=== PATIENT | female | born 1930 | race African-American/Black ===

== ENCOUNTER 2020-08-31 00:07 | Inpatient (IN) | payer OTHER ==
[2020-08-31] VITALS (7 sets, daily range): BP systolic 132–159; BP diastolic 63–91
[~2020-08-31] VITALS: Ht 165.1 cm; Wt 94.6 kg
--- NOTE | ~2020-08-31 | EMS ---
[place] [id number] [place] Patient Care Report Name: REAL LOCK Room #: 202-P ADM IN M.R.#: [id number] Admission: 08/31/20 Attend Phys: Panfilo Tao MD Discharge: Date of : [birth year] Report #: [id number] THIS REPORT FOR: //name// Report Transmitted: 09/01/2020 13:50 EMS Care Summary [place], [place]/[facility] Incident [id number] @ 08/30/2020 23:30 Incident Location [address] [place] [address] Patient REAL LOCK Female, 89 Years 1931-01-04 Patient Address [address] [place] [address] Patient History Hypertension (HTN),Type 2 Diabetes, Patient Allergies Penicillin allergy, Patient Medications Isosorbide, Chief Complaint CONSTIPATION Disposition Transported No Lights/[place] Dispatch Reason Breathing Problem Transported To [facility] Narrative M36 ARRIVED ON SCENE TO FIND AN 89 YEAR OLD FEMALE LAYING IN BED. PATIENT STATED THEY FELT FULL IN THEIR ABDOMEN AND CONSTIPATED. PATIENT STATED TO CREW MEMBERS SHE HAS NOT HAD A GOOD BOWEL MOVEMENT IN A COUPLE DAYS. PATIENT WAS NON AMBULATORY AND HAD SWEELING IN BILATERAL FEET WHICH SHE ST[place] [address] EMS Patient Care Report Name: REAL LOCK Room #: 202-P ADM IN M.R.#: [id number] Admission: 08/31/20 Attend Phys: Panfilo Tao MD Discharge: Date of : [birth year] Report #: [id number] HER. PATIENT WAS MOVED WITH A [place] LIFT ONTO THE STRETCHER ONCE ON STRETCHER PATIENT WAS SECURED WITH SAFETY BELTS. CREW MEMBERS AND FIRE PERSONNEL THEN WHEELED PATIENT TO THE BACK OF THE AMBULANCE. ONCE AT THE BACK OF THE AMBULANCE PATIENT WAS LIFTED INTO AMBULANCE. CREW MEMBERS THEN BEGAN TRANSPORT TO [facility]. EN ROUTE TO FACILITY A FULL SET OF VITALS WERE TAKEN WHICH WERE STABLE AND WITHIN NORMAL RANGES. PATIENT STATED SHE HAD NO PAIN JUST THAT HER STOMACH FELT FULL. EARLIER IN THE WEEK PATIENT WAS TAKEN TO HOSPITAL AND BROUGHT HOME WITH OXYGEN PER FAMILY BUT OXYGEN SATURATION WERE WITHIN NORMAL RANGES. ONCE AT HOSPITAL PATIENT WAS TAKEN OUT OF THE AMBULANCE WITH STRETCHER BY CREW MEMBERS AND WHEELED INTO HOSPITAL EMERGENCY ROOM. ONCE IN THE EMERGENCY ROOM PATIENT WAS WHEELED TO HOSPITAL ROOM AND MOVED TO HOSPITAL BED WITH A THREE PERSON SHEET LIFT. A FULL REPORT WAS GIVEN TO RECEIVING MEDICAL STAFF AND M36 WENT BACK INTO SERVICE. Initial Vitals @23:51P: 94,R: 16,BP: 148/63,Pain: 0/10,GCS: 15,CO: 5,SpO2: 96,Revised Trauma: 12, @23:47P: 93,R: 16,BP: 161/90,Pain: 0/10,GCS: 15,CO: 8,SpO2: 94,Revised Trauma: 12, Assessments @23:59MENTAL:Person Oriented,Time Oriented,Event Oriented,Place Oriented,SKIN:HEENT:Head/Face: No Abnormalities,LUNG SOUNDS:General: No Abnormalities,ABDOMEN:General: No Abnormalities,PELVIS//GI:No Abnormalities,EXTREMITIES:Left Leg: Edema,Left Leg: Weakness,Left Arm: Weakness,Right Arm: Weakness,Right Leg: Edema,Right Leg: Weakness,PULSE:Radial: 2+ Normal,NEURO:No Abnormalities, Impression Constipation Procedures @23:57ALS AssessmentResponse: UnchangedSucceeded@23:57BLS AssessmentResponse: Unchanged@23:58StretcherResponse: Unchanged Timeline 23:26,Call Received 23:26,Dispatch Notified 23:30,Dispatched 23:30,En Route 23:37,On Scene 23:39,At Patient 23:47,BP: 161/90 M,PULSE: 93,RR: 16 R,SPO2: 94 Ox,ETCO2: ,BG: ,PAIN: 0,GCS: 15, 23:51,Depart Scene 23:51,BP: 148/63 M,PULSE: 94,RR: 16 R,SPO2: 96 Ox,ETCO2: ,BG: ,PAIN: 0,GCS: 15, 23:57,ALS Assessment,Response: UnchangedSucceeded, [facility] [address] [place] [address] EMS Patient Care Report Name: REAL LOCK Room #: 202-P ADM IN M.R.#: [id number] Admission: 08/31/20 Attend Phys: Panfilo Tao MD Discharge: Date of : [birth year] Report #: [id number] 23:57,BLS Assessment,Response: Unchanged 23:58,Stretcher,Response: Unchanged 00:02,At Destination 00:14,Call Closed Disclaimer v1.1 Copyright 2020 [employer] This EMS Care Summary contains data elements from the applicable legal record (which may be displayed differently). It is designed to provide pertinent information for the following purposes: continuity of care, clinical quality, and state data reporting. The complete legal record is available to ED staff and administrators of the receiving hospital in [email or web address]'s Patient Tracker. All data is provided "as is."
[2020-08-31 01:14] LABS: ABSOLUTE NEUTROPHILS 5.4 thou/uL (1.4-8.2); BASOPHILS 0.6 % (0.0-2.0); EOSINOPHILS 1.8 % (0.0-3.0); HEMATOCRIT 25.9 % (37.0-47.0); HEMOGLOBIN 8.5 gm/dL (12.0-15.0); LYMPHOCYTES 17.2 % (24.0-44.0); MCH 29.7 pg (26.0-34.0); MCHC 32.9 g/dL (28.0-37.0); MCV 90.3 fL (80.0-100.0); PLATELET COUNT 310 thou/uL (150-400); POLYS 73.4 % (36.0-66.0); RBC 2.87 mil/uL (4.20-5.00); RDW 17.2 % (10.5-14.5); WBC 7.3 thou/uL (4.0-11.0)
[2020-08-31 01:40] LABS: ALBUMIN 2.9 g/dL (3.4-5.0); BUN 35 mg/dL (7-18); CALCIUM 9.2 mg/dL (8.5-10.1); CO2 27 mmol/L (21-32); CREATININE 1.8 mg/dL (0.6-1.0); GLUCOSE 138 mg/dL (74-106); SGOT < 5 U/L (15-37); SGPT 136 U/L (14-59); TOTAL BILIRUBIN 0.5 mg/dL (0.2-1.0); TOTAL PROTEIN 7.4 g/dL (6.4-8.2)
[2020-08-31 01:45] LABS: ANION GAP 7 mmol/L (7-16); CHLORIDE 100 mmol/L (98-107); POTASSIUM 5.4 mmol/L (3.5-5.1); SODIUM 134 mmol/L (136-145)
[2020-08-31 10:00] LABS: % SATURATION 23 % (20-39); IRON 41 ug/dL (50-170); TIBC 176 ug/dL (250-450)
--- NOTE | 2020-08-31 20:45 | NUR ---
PT IS AN ADMIT FROM EMERGENCY ROOM. CONSTIPATION , SHORTNESS OF BREATH, HISTORY DM, STENTS, CHF. WILL CALL [facility] IN AM FOR CONSULT ROUTINE. FAMILY WITH PT UPON ARIVAL TO UNIT. PLAN OF CARE AND ADMISSION DONE UPON ARRIVAL TO UNIT. LUNGS ARE DIMINISHED. ON 2 LITERS O2 NASAL CANULA. DENEIS ANY PAIN. CALL LIGHT WITHIN REACH IF NEEDS ASSISTANCE PEPR NURSING.
[2020-09-01 00:10] VITALS: BP 134/70
[2020-09-01 03:57] LABS: HEMATOCRIT 22.2 % (37.0-47.0); HEMOGLOBIN 7.4 gm/dL (12.0-15.0); MCH 30.1 pg (26.0-34.0); MCHC 33.2 g/dL (28.0-37.0); MCV 90.7 fL (80.0-100.0); RBC 2.44 mil/uL (4.20-5.00); RDW 16.6 % (10.5-14.5); WBC 6.2 thou/uL (4.0-11.0)
[2020-09-01 04:08] LABS: CALCIUM 8.9 mg/dL (8.5-10.1); CREATININE 1.7 mg/dL (0.6-1.0); POTASSIUM 4.3 mmol/L (3.5-5.1)
--- NOTE | 2020-09-01 04:15 | NUR ---
PT IS RESTED WITH TV ON THIS EVENING . VITALS STABLE. DENIES ANY PAIN ISSUES. LUNGS ARE CLEAR TO DIMINISHED. ABDOMEN IS ROUND AND SOFT. BOWEL SOUNDS ACTIVE. PT HAS SWELLING IN LEGS AND BILATERAL IN FEET 2 PLUS. PT REPORTS ITS HARD FOR HER TO GET AROUND NOW SHE IS WEAK USE TO USE A WALKER NOW SOMETIMES ITS A WHEEL CHAIR FAMILY REPORTED. CALL LIGHT WITHIN REACH IF NEEDS ASSISTANCE.
[2020-09-01 04:42] VITALS: BP 122/70
--- NOTE | 2020-09-01 07:23 | EKG ---
[facility] [email or web address] [address] ELECTROCARDIOGRAM REPORT Name: REAL LOCK Room #: 202- ADM IN M.R.#: [id number] Admission: 08/31/20 Attend Phys: Panfilo Tao MD Discharge: Date of : [birth year] Report #: [id number] [facility] ED Test Date: 2020-08-31 Test Time: 00:41:35 Pat Name: REAL LOCK Department: Room: 202 P Gender: F Perinatal Tech: : 1931-01-04 Requested By: Kareem Calloway Order Number: [id number] MD: Sheldon Staley Measurements Intervals [place] Rate: 95 P: 50 GA: 191 QRS: 47 QRSD: 93 T: 199 QT: 367 QTc: 462 Interpretive Statements Sinus rhythm Probable LVH with secondary repol abnrm Anterior Q waves, possibly due to LVH Baseline wander in lead(s) V6 No previous ECG available for comparison Electronically Signed On 09-01-2020 7:23:25 CDT by Sheldon Staley [email or web address] <ELECTRONICALLY SIGNED> By: Sheldon Staley MD, [facility] 09/01/20 0723 004 004 Sheldon Staley MD, FAC /EPI
[2020-09-01 07:27] VITALS: BP 110/59
[2020-09-01 11:20] VITALS: BP 100/45
--- NOTE | 2020-09-01 15:47 | EKG ---
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 : 1931-01-04 Requested By: Panfilo Tao Order Number: [id number] MD: Sheldon Staley Measurements Intervals [place] Rate: 71 P: 60 MS: 178 QRS: 31 QRSD: 94 T: 191 QT: 448 QTc: 487 Interpretive Statements Sinus rhythm Probable left atrial enlargement Anterior infarct, old Baseline wander in lead(s) II,III,aVF Compared to ECG 08/31/2020 00:41:35 Myocardial infarct finding now present Left ventricular hypertrophy no longer present Q waves no longer present Electronically Signed On 09-01-2020 15:47:03 CDT by Sheldon Staley [email or web address] <ELECTRONICALLY SIGNED> By: Sheldon Staley MD, [facility] 09/01/20 1547 1443 1443 Sheldon Staley MD, [facility] /EPI
--- NOTE | 2020-09-01 16:24 | 2DMMODE ---
[facility] [address] [place] [address] 2 D/M-MODE ECHOCARDIOGRAM Name: REAL LOCK Room #: 202-P ADM IN M.R.#: [id number] Admission: 08/31/20 Attend Phys: Panfilo Tao MD Discharge: Date of : [birth year] Report #: [id number] THIS REPORT FOR: cc: FAM - Family physician unknown FAM - Family physician unknown Kareem Calloway MD [facility] ~ APPROVED REPORT Study performed: 09/01/2020 10:32:09 EXAM: Comprehensive 2D, Doppler, and color-flow Echocardiogram Patient Location: Bedside Room #: 202 Status: routine BSA: 1.98 HR: 71 bpm BP: 110/59 mmHg Rhythm: NSR Other Information Study Quality: Good Indications Congestive Heart Failure Diabetes CAD Syncope 2D Dimensions RVDd: 39.73 mm IVSd: 8.28 (7-11mm) LVOT Diam: 19.74 (18-24mm) LVDd: 57.05 mm PWd: 10.03 (7-11mm) Ascending Ao: 28.33 (22-36mm) LVDs: 50.41 (25-40mm) Left Atrium: 43.54 (27-40mm) Aortic Root: 26.76 mm IVC: 27.00 mm Volumes Left Atrial Volume (Systole) Single Plane 4CH: 81.61 mL Single Plane 2CH: 66.28 mL LA ESV Index: 42.00 mL/m2 Aortic Valve AoV Peak Placido.: 1.90 m/s [facility] [address] [place] [address] 2 D/M-MODE ECHOCARDIOGRAM Name: REAL LOCK Room #: 202-P ADM IN M.R.#: [id number] Admission: 08/31/20 Attend Phys: Alexa Gonzalez Discharge: Date of : [birth year] Report #: [id number] AO Peak Gr.: 14.41 mmHg LVOT Max P.00 mmHg LVOT Max V: 0.71 m/s JOSETTE Vmax: 1.14 cm2 Mitral Valve E/A Ratio: 0.9 MV Decel. Time: 204.07 ms MV E Max Placido.: 1.19 m/s MV A Placido.: 1.32 m/s MV PHT: 59.18 ms IVRT: 170.70 ms Pulmonary Valve PV Peak Placido.: 0.68 m/s PV Peak Gr.: 1.84 mmHg Pulmonary Vein P Vein S: 0.55 m/s P Vein A: 0.15 m/s P Vein D: 0.23 m/s P Vein A Dur.: 110.7 msec P Vein S/D Ratio: 2.39 Tricuspid Valve TR Peak Placido.: 2.62 m/s TR Peak Gr.: 27.56 mmHg PA Pressure: 38.00 mmHg Left Ventricle Left ventricle is at the upper limits of normal. There is normal left ventricular wall thickness. Left ventricular systolic function is severely decreased. LVEF is 30%. Global hypokinesis. Septal and inferior wall akinesis Mild diastolic dysfunction Right Ventricle The right ventricle is normal size. The right ventricular systolic function is normal. Atria Left atrium is dilated. Right atrium is dilated. Aortic Valve Prosthetic aortic valve. TAVR No aortic regurgitation is present. There is no aortic valvular stenosis. Mitral Valve Mild-moderate mitral annular calcification. Mild leaflet calcification Mild to moderate mitral regurgitation. No evidence of mitral valve stenosis. [facility] [address] [place] [address] 2 D/M-MODE ECHOCARDIOGRAM Name: REAL LOCK Room #: 202-P [facility] IN M.R.#: [id number] Admission: 08/31/20 Attend Phys: Alexa Gonzalez Discharge: Date of : [birth year] Report #: [id number] Tricuspid Valve The tricuspid valve is normal in structure. There is mild to moderate tricuspid regurgitation. Estimated PAP 38 mmHg. Pulmonic Valve The pulmonary valve is normal in structure. Trace pulmonic regurgitation. Great Vessels The aortic root is normal in size. IVC is dilated and collapses <50% with inspiration. Pericardium Small pericardial effusion. <Conclusion> Left ventricular systolic function is severely decreased. LVEF is 30%. Global hypokinesis. Septal and inferior wall akinesis Mild diastolic dysfunction Both atria are dilated. Prosthetic aortic valve. TAVR. No aortic regurgitation or stenosis. Mild-moderate mitral annular calcification. Mild leaflet calcification. Mild to moderate mitral regurgitation. There is mild to moderate tricuspid regurgitation. Estimated pulmonary artery pressure of 38 mmHg. Small pericardial effusion. <ELECTRONICALLY SIGNED> By: Kareem Calloway MD, [facility] 09/01/20 1624 1624 162 Kareem Calloway MD, FAC /INF
[2020-09-01 19:05] VITALS: BP 113/65
--- NOTE | 2020-09-01 21:19 | NUR ---
ASSUMED CARE SHIFT CHANGE. VSS, C/O PAIN IN LEGS. PHYSICIAN NOTIFED, ORDERS RECEIVED. PT DID NOT WANT NARCOTICS, ASKS FOR TYLENOL. ORDERS RECEIVED. LOW BP THIS SHIFT, HYDRALZINE HELD. FAMILY AT BEDSIDE UPDATED ON POC. ISRA[place] IN PLACE I&OS. REPORT GIVEN TO ALE CLARKE.
[2020-09-01 22:06] LABS: IgA 460 mg/dL (64-422); IgG 1382 mg/dL (586-1602); IgM 82 mg/dL (26-217)
[2020-09-02 03:59] LABS: HEMATOCRIT 22.3 % (37.0-47.0); HEMOGLOBIN 7.2 gm/dL (12.0-15.0); MCH 29.6 pg (26.0-34.0); MCHC 32.3 g/dL (28.0-37.0); MCV 91.5 fL (80.0-100.0); RBC 2.44 mil/uL (4.20-5.00); WBC 5.6 thou/uL (4.0-11.0)
[2020-09-02 04:13] LABS: CALCIUM 8.6 mg/dL (8.5-10.1); CREATININE 1.7 mg/dL (0.6-1.0); POTASSIUM 3.9 mmol/L (3.5-5.1)
--- NOTE | 2020-09-02 05:32 | NUR ---
PT BEEN RESTING IN NO ACUTE DISTRESS.A/OX.VSS.SR ON MONITOR.ON O2 AT 2LITERS PNC,NO RESP DISTRESS.JHONATAN DD,DIURESING WELL.DENIES PAIN TO BLES UNLESS WHEN MOVED.ASSESSMENT COMPLETED DOCUMENTED.WILL CONT TO MONITOR PER POC.
[2020-09-02 05:47] VITALS: BP 118/58
[2020-09-02 07:49] VITALS: BP 104/52
--- NOTE | 2020-09-02 08:26 | EKG ---
[place] [address] [address] [facility] [place] [address] ELECTROCARDIOGRAM REPORT Name: REAL LOCK Room #: 202-P ADM IN M.R.#: [id number] Admission: 08/31/20 Attend Phys: Panfilo Tao MD Discharge: Date of : [birth year] Report #: [id number] 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 Licensed: TAM : 1931-01-04 Requested By: Kareem Calloway Order Number: [id number] MD: Sheldon Staley Measurements Intervals [place] Rate: 75 P: 65 [place]: 168 QRS: 33 QRSD: 99 T: 195 QT: 437 QTc: 489 Interpretive Statements Sinus rhythm Probable left atrial enlargement LVH with secondary repolarization abnormality Anterior infarct, old Baseline wander in lead(s) V1,V2 Compared to ECG 09/01/2020 14:43:22 Left ventricular hypertrophy now present Early repolarization now present Myocardial infarct finding still present Electronically Signed On 09-02-2020 8:26:18 CDT by Sheldon Staley [email or web address] <ELECTRONICALLY SIGNED> By: Sheldon Staley MD, FACC 09/02/20 0826 4 4 Sheldon Staley MD, [facility] /EPI
[2020-09-02 08:54] LABS: FOLIC ACID 18.5 ng/mL (8.6-58.9)
--- NOTE | 2020-09-02 16:30 | NUR ---
Met with patient and spoke with dtr over phone. Patient was at [facility] and transferred to [facility]. Dtr did not like skilled stay. Niece assisted with patient leaving [place] and return to family home. Patient plans to stay with dtr, all needs on one level with step from garage into home. jasen has a rolator walker. Dtr reports [place] was to order equipt for home for patient and not delivered. Discussed with patient/dtr 5[facility] eval and rehab. Dtr agreeable for 5N eval if cannot accept then plan home not skilled care. Discussed with acute rehab.
[2020-09-02 17:51] VITALS: BP 117/57
[2020-09-02 20:15] VITALS: BP 121/65
[2020-09-03 03:26] LABS: HEMATOCRIT 22.8 % (37.0-47.0); HEMOGLOBIN 7.6 gm/dL (12.0-15.0); MCH 30.3 pg (26.0-34.0); MCHC 33.5 g/dL (28.0-37.0); MCV 90.4 fL (80.0-100.0); RBC 2.52 mil/uL (4.20-5.00); RDW 16.6 % (10.5-14.5); WBC 5.8 thou/uL (4.0-11.0)
[2020-09-03 04:04] LABS: CALCIUM 8.6 mg/dL (8.5-10.1); CREATININE 1.5 mg/dL (0.6-1.0); POTASSIUM 3.8 mmol/L (3.5-5.1)
[2020-09-03 04:45] VITALS: BP 136/70
[2020-09-03 08:07] VITALS: BP 137/74
[2020-09-03 09:33] LABS: ABSOLUTE RETIC COUNT 0.0581 10^6/uL; OBSERVED RETIC COUNT 2.27 % (0.6-2.6)
--- NOTE | 2020-09-03 12:54 | NUR ---
REQUEST FOR AUTHORIZATION [facility]IA [facility] [employer] HAS BEEN INITIATED AND AWAITING THEIR APPROVAL. REHAB ADMISSIONS LIAISON HAS BEEN NOTIFIED.
[2020-09-03 15:08] LABS: KAPPA FREE LIGHT CHAINS 124.1 mg/L (3.3-19.4); KAPPA/LAMBDA RATIO 1.99 (0.26-1.65); LAMBDA FREE LIGHT CHAINS 62.3 mg/L (5.7-26.3)
[2020-09-03 15:50] VITALS: BP 136/77
--- NOTE | 2020-09-03 17:04 | NUR ---
Patient accepted to [facility] they are in process of seeking auth.
--- NOTE | 2020-09-03 18:38 | NUR ---
ASSUMED CARE SHIFT CHANGE. VSS, C/O PAIN MANAGED WITH PO TYLENOL. PT UP WITH PHYS THERAPY FELICITA FAIR, OT WORKED WITH PT WELL. O2 SATS WNL ON O2 AND RA. PT UP IN CHAIR FELICITA WELL. FAMILY VISITED WITH PT. DENIES SOB. UOP ADEQUATE WITH DIURESIS. CONT POC. WILL PASS REPORT TO NOC RN
[2020-09-03 19:23] VITALS: BP 122/52
[2020-09-03 23:06] LABS: HEMOGLOBIN 7.8 g/dL (11.1-15.9)
[2020-09-04 03:13] VITALS: BP 136/64
[2020-09-04 03:51] LABS: HEMOGLOBIN 7.7 gm/dL (12.0-15.0); MCH 30.2 pg (26.0-34.0); MCHC 33.4 g/dL (28.0-37.0); MCV 90.4 fL (80.0-100.0); RBC 2.55 mil/uL (4.20-5.00); RDW 16.7 % (10.5-14.5)
[2020-09-04 03:56] LABS: CALCIUM 8.7 mg/dL (8.5-10.1); CREATININE 1.4 mg/dL (0.6-1.0)
[2020-09-04 04:01] VITALS: BP 136/64
--- NOTE | 2020-09-04 04:55 | NUR ---
ASSUMED PT CARE AT 1900, ALERT AND ORIENTED, MAKES NEEDS KNOWN, SR ON TELE, VSS, ASSESSMENTS COMPLETED AND CHARTED, C/O PAIN TO THE L.SHOULDER, PAIN MEDS GIVEN WITH RELIEF, MEDS GIVEN PER APR, SLEPT WELL, PLAN FOR REHAB WHEN STABLE, WILL CONTINUE TO MONITOR AND FOLLOW POC
[2020-09-04 07:09] VITALS: BP 119/55
--- NOTE | 2020-09-04 13:30 | NUR ---
Daughter at bedside, updated on patient plan of care. Answered questions.
[2020-09-04 14:10] VITALS: BP 137/70
--- NOTE | 2020-09-04 18:28 | NUR ---
CALLED [facility] TODAY FOR UPDATE REGARDING REQUEST FOR AUTHORIZATION FOR ACUTE INPATIENT REHAB. REQUEST IS STILL BEING REVIEWED AT THIS TIME. CASE MGMT NOTIFIED.
[2020-09-04 19:06] VITALS: BP 128/71
[2020-09-05 03:06] LABS: HEMATOCRIT 24.5 % (37.0-47.0); HEMOGLOBIN 8.1 gm/dL (12.0-15.0); MCH 29.9 pg (26.0-34.0); MCHC 32.9 g/dL (28.0-37.0); RBC 2.7 mil/uL (4.20-5.00); RDW 17.7 % (10.5-14.5)
[2020-09-05 03:27] LABS: CALCIUM 8.7 mg/dL (8.5-10.1); CREATININE 1.4 mg/dL (0.6-1.0); POTASSIUM 4.3 mmol/L (3.5-5.1)
[2020-09-05 03:39] VITALS: BP 128/71
--- NOTE | 2020-09-05 04:58 | NUR ---
assumed care at 1900, awake, alert and oriented, sr on tele, assessments as charted, c/o constipation, miralax given, no bm this shift, denies cp or sob, assessments as charted, meds given as per apr, slept well, will continue to monitor and follow poc
--- NOTE | 2020-09-05 05:55 | HC ---
[facility] [place] [address] CONSULTATION Name: REAL LOCK Room #: 202-P ADM IN M.R.#: [id number] Admission: 08/31/20 Attend Phys: Panfilo Tao MD Discharge: Date of : [birth year] Report #: [id number] THIS REPORT FOR: cc: FAM - Family physician unknown FAM - Family physician unknown Santi Mckeon MD ~ REQUESTING PHYSICIAN: Dr. Kareem Calloway. REASON FOR CONSULTATION: Elevated serum free light chain ratio. HISTORY OF PRESENT ILLNESS: The patient is an 89-year-old female admitted to [facility] on 08/31/2020 for weakness and shortness of air. Her workup included lab test that showed a free serum kappa light chain of 124.1, a serum lambda free light chain of 62.3 and a serum free light chain kappa lambda ratio of 1.99, elevated above reported normal range of about 1.65. Also note, the patient is 89 years old and has a creatinine of 1.4. This is significant as many would consider that the normal range so to speak should be higher when the creatinine is elevated or the glomerular filtration is less. This would suggest that this really is not elevated. We also note that at the same time, the serum immunofixation is thought, if anything, a polyclonal protein and no monoclonal protein. Her IgG was normal at 1382. Her IgA slightly elevated at 460 and 422 and her IgM normal at 82. The patient has complaints of syncope and shortness of air that has been going on for some time. She also has a history of lower extremity edema and most of her physicians have been at [facility]. She denies fevers, chills, change in appetite, sweats, night sweats, significant weight change. She also does not have any new vision changes or blurriness. She also does not have any headache, trouble swallowing. She does have some shortness of air with exertion, but does not have any cough, does not bring up any blood. She does have the leg swelling. She does not have any chest pain. She does not have any abdominal pain, nausea or vomiting. She has not described any urinary symptoms. She does have leg swelling, but does not have any muscle, back or joint pain. She has not had any rashes. She does have some dizziness, but she denies any numbness or tingling or altered thinking. She does have diabetes, but denies symptoms. Does not have any cold or heat intolerance. Does not have any easy bruising. Does not have any enlarged lymph nodes, but she does have a small bump near her left elbow that she says has been there unchanged for 3-5 years. Other lab tests were notable for an absolute retic count of 0.058, which is inappropriately low. Creatinine 1.4, hemoglobin 7.7, white count 7, platelets 233, peripheral smear was thought to be normal. Also, her iron was 41 and saturation 23%, B12 of 613 and folate I believe is either 10 or 12.5. PHYSICAL EXAMINATION: GENERAL: The patient appears her stated age. VITAL SIGNS: Her height is 5 feet 5 or 165.1 cm, weight is 206 pounds or 93.[address] [address] CONSULTATION Name: REAL LOCK Room #: 202-P ADM IN M.R.#: [id number] Admission: 08/31/20 Attend Phys: Panfilo Tao MD Discharge: Date of : [birth year] Report #: [id number] kilograms. Recent blood pressure 119/55, O2 sat 97, respirations 17, pulse 92, afebrile at 97.8. HEENT: Face is symmetrical. Has somewhat poor dentition. Moving arms and legs and feeding herself. LUNGS: Seem mostly clear anteriorly. HEART: Regular rate. LYMPHATICS: No enlarged lymph nodes in the supraclavicular, cervical, or axillary region. The patient does have a small bump on her left elbow that is about 1/2 to 3/4 cm that she says has been there for 3-5 years and unchanged. She says it is slightly painful when she bumps it. ABDOMEN: Slightly obese. No organomegaly, not specifically tender. EXTREMITIES: Without clubbing, cyanosis. There may be some trace edema. MEDICATIONS: At this time currently include torsemide 20 mg daily, Zofran p.r.n., timolol eyedrops, latanoprost eyedrops, Tylenol p.r.n., hydrocodone p.r.n., Plavix 75 mg daily, atorvastatin 40 daily, insulin on a sliding scale, hydralazine I believe is p.r.n., isosorbide 60 mg daily, carvedilol 12.5 b.i.d. She is receiving the iron sucrose x 5 bags. ASSESSMENT AND PLAN: 1. Elevated serum kappa light chain. The ratio was barely above what I would expect to be normal. Also on the report there is no monoclonal on the serum test. We will check the urine test for monoclonal protein. If no monoclonal protein is found in the blood or the urine and the ratio of the serum kappa lambda light chain ratio was disclosed normal, I think it would be very unlikely, almost impossible, that the patient has amyloid deposition from a monoclonal protein. We will follow up. Doubt at this time would benefit from bone marrow or fat pad biopsy, but it could be entertained, though not likely to be helpful. 2. Cardiomyopathy. Defer to Cardiology with an ejection fraction of 30%. Continues on carvedilol and diuretics. 3. Coronary artery disease with stenting. Has Plavix and other meds. 4. Status post transcatheter aortic valve replacement. 5. Hyperlipidemia. Is on statin. 6. Anemia. Is on iron. We will check EPO level. 7. Chronic kidney disease. Watch drug doses and nephrotoxic agents may be contributing to anemia. 8. Diabetes type 2. Defer to others. Suggestions for diet and also sliding scale insulin. [facility] [address] [place] [address] CONSULTATION Name: REAL LOCK Room #: 202-P [facility] IN M.R.#: [id number] Admission: 08/31/20 Attend Phys: Panfilo Tao MD Discharge: Date of : [birth year]/31[birth year] Report #: [id number] We will follow with you. <ELECTRONICALLY SIGNED> By: Santi Mckeon MD 09/05/20 0555 0819 1336 Santi Mckeon MD /nt
[2020-09-05 06:13] VITALS: BP 132/70
[2020-09-05 08:00] VITALS: BP 123/74
[2020-09-05 12:00] VITALS: BP 113/57
[2020-09-05 16:00] VITALS: BP 118/63
--- NOTE | 2020-09-05 16:04 | NUR ---
Case discussed with the care team. [facility] acute rehab is awaiting insurance approval. They have spoken with the ins cm today and requested an expediated decision. If auth rec'd this weekend, they will have bed available. If the insurance denies than pt/dtr prefer home with hh vs snf.
[2020-09-05 19:26] VITALS: BP 111/52
[2020-09-06 03:33] VITALS: BP 113/51
[2020-09-06 07:25] VITALS: BP 124/58
--- NOTE | 2020-09-06 07:43 | NUR ---
Pt refused to take her hydralazine , said she wanted to take it with breakfast and other morning meds, ststing thats how she takes it,
--- NOTE | 2020-09-06 20:02 | NUR ---
PATIENT ASSISTED TO COMMODE WITH SBA AT 1600. 1614 PATIENT'S DAUGHTER YELLED OUT FOR HELP. 1615 PATIENT NON-RESPONSIVE, SLUMPED OVER, NO PULSE. CODE CALLED, ASSISTED TO FLOOR AT 1615. COMPRESSIONS STARTED. PATIENT RECIEVED ACLS. SHE REGAINED PULSE ONCE AFTER 3 ROUNDS OF EPINEPHRINE WERE GIVEN. SHE WAS INTUBATED DURING CODE. PULSE REGAINED AT 1827, PATIENT NOT RESPONSIVE, CONTINUED RESPIRATORY SUPPORT VIA BAG VALVE MASK PER RT. AT THIS POINT MD DISCUSSED WITH FAMILY IN PERSON, FAMILY REQUESTED FOR COMPRESSIONS TO BE STOPPED. PATIENT LOST PULSE AGAIN AT 1839, COMPRESSIONS NOT RESUMED PER DR. GUZMAN.
--- NOTE | 2020-09-08 07:30 | EKG ---
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: NAVARRO : 1930 Requested By: Panfilo Tao Order Number: [id number] MD: Sheldon Staley Measurements Intervals [place] Rate: 59 P: -90 [place]: 136 QRS: 80 QRSD: 96 T: 209 QT: 366 QTc: 363 Interpretive Statements Ectopic atrial rhythm Anteroseptal infarct, old Repol abnrm, global ischemia, diffuse leads Baseline wander in lead(s) III Compared to ECG 09/02/2020 07:15:28 Ectopic atrial rhythm now present Possible ischemia now present Sinus rhythm no longer present Left ventricular hypertrophy no longer present Myocardial infarct finding still present Electronically Signed On 09-08-2020 7:29:52 CDT by Sheldon Staley [email or web address] <ELECTRONICALLY SIGNED> By: Sheldon Staley MD, FACC 09/08/20 0729 183 33 Sheldon Staley MD, [facility] /EPI
[2020-09-08 15:08] LABS: URINE PROTEIN (MG/DL) 11.9 mg/dL (Not Estab.)
== END 2020-09-06 18:39 | DRG 291 ==
LOC: ER 00:07 → 2N 06:17 → EROBS 06:17 → EDBD 06:17 → 2N 20:22
PROVIDERS: Emergency Medicine; Hospitalist; Internal Medicine; Internal Medicine Hematology & Oncology; Nurse Practitioner; ADMIT Hospitalist; ATTEND Hospitalist
PROC: 5A12012 Performance of Cardiac Output, Single, Manual (ICD-10-PCS; principal; 2020-09-06)
PROC: 0BH17EZ Insertion of Endotracheal Airway into Trachea, Via Natural or Artificial Opening (ICD-10-PCS; principal; 2020-09-06)
DX: I13.0 Hypertensive heart and chronic kidney disease with heart failure and stage 1 through stage 4 chronic kidney disease, or unspecified chronic kidney disease (principal); I50.23 Acute on chronic systolic (congestive) heart failure; R65.11 Systemic inflammatory response syndrome (SIRS) of non-infectious origin with acute organ dysfunction; N17.9 Acute kidney failure, unspecified; I38 Endocarditis, valve unspecified; I25.10 Atherosclerotic heart disease of native coronary artery without angina pectoris; J98.2 Interstitial emphysema; I42.9 Cardiomyopathy, unspecified; R77.8 Other specified abnormalities of plasma proteins; Z20.822 Contact with and (suspected) exposure to COVID-19; E78.5 Hyperlipidemia, unspecified; I46.9 Cardiac arrest, cause unspecified; D64.9 Anemia, unspecified; N18.9 Chronic kidney disease, unspecified; E11.22 Type 2 diabetes mellitus with diabetic chronic kidney disease; I65.29 Occlusion and stenosis of unspecified carotid artery; R53.81 Other malaise; Z88.0 Allergy status to penicillin; Z95.5 Presence of coronary angioplasty implant and graft; Z82.49 Family history of ischemic heart disease and other diseases of the circulatory system; Z95.2 Presence of prosthetic heart valve; I95.9 Hypotension, unspecified
CPT/HCPCS: 10081